=== PATIENT | male | born 1985 | race Caucasian/White ===

== ENCOUNTER → 2023-08-04 | Emergency (ER) | payer BC ==
[~2023-08-04] MED LIST: ACETAMINOPHEN 500 MG TAB ONE
--- OUTSIDE RECORDS SUMMARY | 2023-08-04 17:13 | XMS REPORT | Continuity of Care Document ---
Author Name Unknown Address [address] [facility] [address] th[address] Address [address] [facility] [address] [place] [address] Care Team Providers Care Layout Man Name Role Phone TASHI_F Attending Clinician Unavailable TASHI_F Admitting Clinician Unavailable Payers Payer Name Policy Type Policy Number Effective Date Expirati on Date Source [place] [id number] 2020 00:00:00 Problems Condition Name Condition Details Condition Category Status Onset Date Resolution Date Last Treatment Date Treating Clinician Comments Source Hyperchole sterolemia Hyperchole sterolemia Problem Active 2022-06 00:00: 00 [facility] Hyperlipid emia Hyperlipid emia Problem Active 2022-06 00:00: 00 [facility] 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 10-28 00:00: 00 [facility] Hypertensi ve disorder Hypertensi ve Disorder Problem Active 10-28 00:00: 00 [facility] 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 Ordering Clinician Indication Dosage Frequency Signature (SIG) Comments Components Source losartan 100 mg tablet Take 1 tablet every day by oral route. losartan 100 mg tablet Take 1 tablet every day by oral route. No 1 Q1D losartan 100 mg tablet Take 1 tablet every day by oral route. [facility] fenofibrate 160 mg tablet TAKE 1 TABLET BY MOUTH EVERY DAY fenofibrate 160 mg tablet TAKE 1 TABLET BY MOUTH EVERY DAY No fenofibrat e 160 mg tablet TAKE 1 TABLET BY MOUTH EVERY DAY [facility] ketorolac 10 mg tablet TAKE 1 TABLET BY MOUTH EVERY 6 HOURS NEEDED FOR PAIN ketorolac 10 mg tablet TAKE 1 TABLET BY MOUTH EVERY 6 HOURS NEEDED FOR PAIN No ketorolac 10 mg tablet TAKE 1 TABLET BY MOUTH EVERY 6 HOURS NEEDED FOR PAIN [facility] losartan 100 mg tablet Take 1 tablet every day by oral route for 90 days. For blood pressure. losartan 100 mg tablet Take 1 tablet every day by oral route for 90 days. For blood pressure. No 1 Q1D losartan 100 mg tablet Take 1 tablet every day by oral route for 90 days. For blood pressure. [facility] orphenadrin e citrate ER 100 mg tablet,exte nded release TAKE 1 TABLET BY MOUTH TWICE DAILY NEEDED FOR MUSCLE SPASMS orphenadrin e citrate ER 100 mg tablet,exte nded release TAKE 1 TABLET BY MOUTH TWICE DAILY NEEDED FOR MUSCLE SPASMS No orphenadri ne citrate ER 100 mg tablet,ext ended release TAKE 1 TABLET BY MOUTH TWICE DAILY NEEDED FOR MUSCLE SPASMS [facility] prednisone 10 mg tablet TAKE 4 TABLETS BY MOUTH DAILY FOR 5 DAYS THEN 3 TABLETS DAILY FOR 3 DAYS THEN 2 TABLETS DAILY FOR 2 DAY THEN 1 TABLET DAILY FOR 2 DAYS prednisone 10 mg tablet TAKE 4 TABLETS BY MOUTH DAILY FOR 5 DAYS THEN 3 TABLETS DAILY FOR 3 DAYS THEN 2 TABLETS DAILY FOR 2 DAY THEN 1 TABLET DAILY FOR 2 DAYS No prednisone 10 mg tablet TAKE 4 TABLETS BY MOUTH DAILY FOR 5 DAYS THEN 3 TABLETS DAILY FOR 3 DAYS THEN 2 TABLETS DAILY FOR 2 DAY THEN 1 TABLET DAILY FOR 2 DAYS [facility] tramadol 50 mg tablet TAKE 1 TABLET BY MOUTH EVERY 6 HOURS NEEDED FOR ACUTE PAIN tramadol 50 mg tablet TAKE 1 TABLET BY MOUTH EVERY 6 HOURS NEEDED FOR ACUTE PAIN No tramadol 50 mg tablet TAKE 1 TABLET BY MOUTH EVERY 6 HOURS NEEDED FOR ACUTE PAIN [facility] Vital Signs Vital Name Observation Time Observation Value Comments S ource BP Systolic 2023-04-21 00:00:00 126 mm[Hg] [facility] BMI (Body Mass Index) 2023-04-21 00:00:00 39 kg/m2 [facility] Body Weight 2023-04-21 00:00:00 5264 [oz_av] [facility] BP Diastolic 2023-04-21 00:00:00 74 mm[Hg] [facility] Height 2023-04-21 00:00:00 77 [in_i] [facility] BP Diastolic 2022-10-28 00:00:00 80 mm[Hg] [facility] Height 2022-10-28 00:00:00 77 [in_i] [facility] BMI (Body Mass Index) 2022-10-28 00:00:00 38.9 kg/m2 [facility] BP Systolic 2022-10-28 00:00:00 124 mm[Hg] [facility] Body Weight 2022-10-28 00:00:00 5248 [oz_av] [facility] Plan of Care Planned Activity Planned Date Details Comments Source Diagnostic Test Pending 2023-04-21 00:00:00 CMP, serum or plasma [code = CMP, serum or plasma] [facility] Diagnostic Test Pending 2023-04-21 00:00:00 lipid panel, serum [code = lipid panel, serum] [facility] Diagnostic Test Pending 2023-04-21 00:00:00 CBC w/ auto diff [code = CBC w/ auto diff] [facility] Future Scheduled Test Improved R BC, Reduced cholesterol pannel. [code = Improved RBC, Reduced cholesterol pannel.] [facility] Future Appointment 2023-10-20 00:00:[address], [address]; [address], [place] [address] [facility] Instructions [facility] Encounters Start Date/Time End Date/Time Encounter Type Admission Type Attending Clinicians Care Facility Care Department Encounter ID Source 2023-05-30 00:00:00 2023-05-30 00:00:00 Outpatient [facility] [id number] [facility] 2023-04-25 00:00:00 2023-04-25 00:00:00 Outpatient BRADEN[facility] [id number] [facility] 2023-04-21 00:00:00 2023-04-21 00:00:00 Outpatient [facility] [id number] 2023-04-21 00:00:00 2023-04-21 00:00:[address], [facility]: [address], [place] [address] , Ph[address] [facility], [address] [id number] [facility] 2023-03-21 00:00:00 2023-03-21 00:00:00 Outpatient [id number] 2023-01-19 00:00:00 2023-01-19 00:00:00 Outpatient [facility] [id number] [facility] 2022-12-15 00:00:00 2022-12-15 00:00:00 Outpatient [facility] [id number] [facility] 2022-11-10 00:00:00 2022-11-10 00:00:00 Outpatient [facility] [id number] [facility] 2022-10-31 00:00:00 2022-10-31 00:00:00 Outpatient [facility] [id number] [facility] 2022-10-28 00:00:00 2022-10-28 00:00:00 Outpatient [facility] [id number] [facility] 2022-10-28 00:00:00 2022-10-28 00:00:00 VIKTORIYA Louise-C: [address] , [place] [address] , Ph. [phone] [facility], [address] [phone] [facility] 2022-10-13 00:00:00 2022-10-13 00:00:00 Outpatient [facility] [id number] [facility] 2022-10-13 00:00:00 2022-10-13 00:00:00 Outpatient [facility] [id number] [facility]
--- NOTE | 2023-08-04 19:41 | RAD REPORT ---
EXAM DESCRIPTION: MRI - Brain Wo Cont - 08/04/2023 7:30 pm CLINICAL HISTORY: HEADACHE COMPARISON: No comparisons TECHNIQUE: Sagittal T1-weighted images were obtained along with PD/heavily T2-weighted and T2-FLAIR images. Axial DWI and ADC mapping sequences were also obtained along with coronal heavily T2-weighted images were obtained. FINDINGS: No intracranial hemorrhage, mass or acute infarction. There is no edema or shift of midlin e structures. No extra-axial fluid collections. Signal voids are seen as a normal finding in the ariane r intracranial vessels. No significant white matter disease. Mastoid air cells and paranasal sinuses are clear. IMPRESSION: Negative non-contrast MRI of the Brain.
--- NOTE | 2023-08-04 19:43 | EDPHYS ---
Physician Documentation [facility] Name: Raul Maldonado Age: 37 yrs Sex: Male : 1985 Arrival Date: 08/04/2023 Time: 17:[address] Private MD: ED Physician Deann Tripathi HPI: 08/04 22:51 This 37 yrs old Male presents to ER via Ambulatory with complaints of Head Pain, kb Numbness of Hands. 22:51 Pt is a 37 year old male who presents for headache and paresthesias to palms that kb started 5 days ago. States he has had several family members who have had brain tumors so he is concerned about that and wants an MRI. . Historical: - Allergies: 17:27 No Known Allergies; as6 - PMHx: 17:27 None; as6 - PSHx: 17:27 back; as6 - Immunization history:: Adult Immunizations up to date. - Social history:: Smoking status: Patient reports the use of cigarette tobacco products, Reported history of juuling and/or vaping. ROS: 22:50 Constitutional: Negative for fever, chills, and weight loss, kb 22:50 MS/extremity: Positive for paresthesias, of the palm of right hand and palm of left hand, 22:50 Neuro: Positive for headache, 22:50 All other systems are negative, Exam: 22:50 Constitutional: This is a well developed, well nourished patient who is awake, alert, kb and in no acute distress. Head/Face: Normocephalic, atraumatic. ENT: Moist Mucous membranes Cardiovascular: Regular rate Respiratory: Respirations even and unlabored. No increased work of breathing. Talking in full sentences Abdomen/GI: Soft, non-tender. No distention Skin: Warm, dry with normal turgor. Normal color. MS/ Extremity: Pulses equal, no cyanosis. Neurovascular intact. Full, normal range of motion. Neuro: Awake and alert, GCS 15, oriented to person, place, time, and situation. Moves all extremities. Normal gait. Vital Signs: 17:25 BP 135 / 82; Pulse 68; Resp 18 S; Temp 98.2(TE); Pulse Ox 98% on R/A; Weight 154.22 kg as6 (R); Height 6 ft. 5 in. (R); Pain 5/10; 19:48 Pulse 72; Resp 17; Pulse Ox 100% ; ap3 17:25 Body Mass Index 40.32 (154.22 kg, 195.58 cm) as6 17:25 Pain Scale: Adult as6 MDM: 17:31 Patient medically screened. kb 22:50 Differential diagnosis: tumor, migraine, tension headache, cluster headache. Data kb reviewed: vital signs, nurses notes. Counseling: I had a detailed discussion with the patient and/or guardian regarding the historical points, exam findings, and any diagnostic results supporting the discharge/admit diagnosis, radiology results, the need for outpatient follow up, a neurologist, to return to the emergency department if symptoms worsen or persist or if there are any questions or concerns that arise at home. 22:52 Management of patient was discussed with the following: Dr Wiggins. kb 08/04 17:45 Order name: MRI - Brain Wo Cont; Complete Time: 19:42 kb Administered Medications: 19:07 Drug: Acetaminophen PO 1000 mg PO once Route: PO; ap3 19:43 Follow up: Response: No adverse reaction ap3 Disposition Summary: 08/04/23 19:43 Discharge Ordered Notes: Location: Home kb Condition: Stable kb Diagnosis - Headache kb Followup: kb - With: Emergency Department - When: As needed - Reason: Worsening of condition Followup: kb - With: Private Physician - When: 2 - 3 days - Reason: Recheck today's complaints, Continuance of care, Re-evaluation by your physician Discharge Instructions: - Discharge Summary Sheet kb - General Headache Without Cause, [id number] kb Forms: - Medication Reconciliation Form kb - Thank You Letter kb - Antibiotic Education kb - Prescription Opioid Use kb - Patient Portal Instructions kb - Leadership Thank You Letter kb Signatures: Dispatcher [employer] EDJaja Strauss, VIKTORIYA-Jennifer rAzola RN RN ap3 Santino Santos RN RN as6 Corrections: (The following items were deleted from the chart) 17:27 PSHx: None; as6 as6
--- NOTE | 2023-08-04 19:43 | ER ---
Nurse's Notes [facility] Name: Raul Maldonado Age: 37 yrs Sex: Male : 1985 Arrival Date: 08/04/2023 Time: 17:[address] Private MD: Diagnosis: Headache Presentation: 08/04 17:25 Chief complaint: Patient states: sharp, intermittent headaches and numbness to hands as6 since Thursday. Coronavirus screen: At this time, the client does not indicate any symptoms associated with coronavirus-19. Ebola Screen: No symptoms or risks identified at this time. Initial Sepsis Screen: Does the patient meet any 2 criteria? No. Patient's initial sepsis screen is negative. Does the patient have a suspected source of infection? No. Patient's initial sepsis screen is negative. Risk Assessment: Do you want to hurt yourself or someone else? Patient reports no desire to harm self or others. Onset of symptoms was July 31, 2023. 17:25 Method Of Arrival: Ambulatory as6 17:25 Acuity: JEANNIE 3 as6 Triage Assessment: 18:57 General: Appears in no apparent distress. Behavior is calm, cooperative, appropriate ap3 for age. Pain: Complains of pain in head. Neuro: Level of Consciousness is awake, alert, obeys commands, Oriented to person, place, time, situation, Reports headache. Cardiovascular: Patient's skin is warm and dry. Respiratory: Airway is patent Respiratory effort is even, unlabored, Respiratory pattern is regular, symmetrical. Historical: - Allergies: 17:27 No Known Allergies; as6 - PMHx: 17:27 None; as6 - PSHx: 17:27 back; as6 - Immunization history:: Adult Immunizations up to date. - Social history:: Smoking status: Patient reports the use of cigarette tobacco products, Reported history of juuling and/or vaping. Screenin:57 [facility] ED Fall Risk Assessment (Adult) History of falling in the last 3 months, ap3 including since admission No falls in past 3 months (0 pts). Abuse screen: Denies threats or abuse. Nutritional screening: No deficits noted. Tuberculosis screening: No symptoms or risk factors identified. Vital Signs: 17:25 BP 135 / 82; Pulse 68; Resp 18 S; Temp 98.2(TE); Pulse Ox 98% on R/A; Weight 154.22 kg as6 (R); Height 6 ft. 5 in. (R); Pain 5/10; 19:48 Pulse 72; Resp 17; Pulse Ox 100% ; ap3 17:25 Body Mass Index 40.32 (154.22 kg, 195.58 cm) as6 17:25 Pain Scale: Adult as6 ED Course: 17:14 Patient arrived in ED. rg4 17:27 Triage completed. as6 17:27 Arm band placed on. as6 17:31 Jaja Gomes FNP-C is [facility]. kb 17:31 Deann Tripathi MD is Attending Physician. kb 18:57 Patient has correct armband on for positive identification. Bed in low position. Call ap3 light in reach. Side rails up X 1. 18:57 No provider procedures requiring assistance completed. ap3 19:32 MRI - Brain Wo Cont In Process Unspecified. EDMS 19:47 Provided Education on: discharge instructions. ap3 19:47 Patient did not have IV access during this emergency room visit. ap3 Administered Medications: 19:07 Drug: Acetaminophen PO 1000 mg PO once Route: PO; ap3 19:43 Follow up: Response: No adverse reaction ap3 Medication: 19:47 VIS not applicable for this client. ap3 Outcome: 19:43 Discharge ordered by . kb 19:47 Discharged to home ambulatory, with family, ap3 19:47 Condition: good 19:47 Discharge instructions given to patient, 19:48 Patient left the ED. ap3 Signatures: Dispatcher [employer] EDWA Jjaa Gomes FNP-C FNP-Swapna Marc rg4 Jennifer Medina RN RN ap3 Santino Santos, PATRICK RN as6 Corrections: (The following items were deleted from the chart) 17: 17:27 PSHx: None; as6 as6
[2023-08-04 20:11] VITALS: BP 135/82; TEMP 98.2; O2SAT 100
== END ==
LOC: ER 17:11
DX: R51.9 Headache, unspecified (principal); R20.2 Paresthesia of skin; Z72.0 Tobacco use
CPT/HCPCS: 70551; 99283